=== PATIENT | female | born 1980 | race Two or more races ===

== ENCOUNTER 2016-08-21 08:30 | Inpatient (IN) | payer MEDICAID ==
[~2016-08-21] VITALS: Ht 157.5 cm; Wt 75.7 kg
[2016-08-21] MEDS ORDERED: LACTATED RINGER'S 1,000 ML IV SCH (09:13)
[2016-08-21] MEDS ORDERED: LACT. RINGERS/OXYTOCIN 20UNITS 1,000 ML IV SCH (09:13)
[2016-08-21] MEDS ORDERED: LIDOCAINE 2%HCL (LOCAL ANESTH.) INJ 20ML MDV IJ ONE (09:15)
[2016-08-21] MEDS ORDERED: ACCU-CHEK COMFORT CURVE STRIP VI SCH (09:15)
[2016-08-21] MEDS ORDERED: PROMETHAZINE HCL 25 MG/ML 1ML IV PRN (09:15)
[2016-08-21] MEDS ORDERED: DERMOPLAST 60ML BOTTLE TOP PRN (09:15)
[2016-08-21] MEDS ORDERED: PHISODERM TOP SOLN 240ML BTL TOP PRN (09:15)
[2016-08-21] MEDS ORDERED: WITCH HAZEL-GLYCERIN PAD TOP PRN (09:15)
[2016-08-21] MEDS ORDERED: PENICILLIN G POT 5MIL/D5 50ML 50 ML IV ONE (09:30)
[2016-08-21 10:11] LABS: Basophils # (auto) 0 uL; Basophils % (auto) 0.3 % (0.0-2.0); Eosinophils # (auto) 0 uL; Eosinophils % (auto) 0.4 % (0.0-7.0); Hematocrit 39.4 % (36.0-46.0); Hemoglobin 13.3 g/dL (12.2-16.2); Lymphocytes # (auto) 1.6 uL; Lymphocytes % (auto) 23.9 % (10.0-50.0); Mean Corpuscular Hemoglobin 30.5 pg (28.0-32.0); Mean Corpuscular Hgb Conc. 33.7 g/dL (32.0-36.0); Mean Corpuscular Volume 90.4 fL (80.0-100.0); Mean Platelet Volume 10.1 fL (7.4-10.4); Monocytes # (auto) 0.5 uL; Monocytes % (auto) 7.9 % (0.0-12.0); Neutrophils # (auto) 4.4 uL; Neutrophils % (auto) 67.5 % (37.0-80.0); Platelet Count (auto) 147 10^3/uL (140-450); Red Cell Distribution Width 13.3 % (11.6-16.0); SUSPECT VIEW TRANSMISSION; White Blood Cell 6.6 10^3/uL (4.4-10.8)
[2016-08-21 10:12] LABS: Urine Bilirubin Negative (Negative); Urine Blood Negative /uL (Negative); Urine Color Yellow (Yellow); Urine Glucose Normal (Normal); Urine Ketone Negative (Negative); Urine Nitrite Negative (Negative); Urine RBC <1 /hpf (0 - 4); Urine Squamous Epithelial Cell FEW /hpf (<5); Urine Urobilinogen Normal (Negative)
[2016-08-21 10:17] LABS: INR 0.97 (0.9-1.15); Partial Thromboplastin Time 26.8 sec (22.64-33.71)
[2016-08-21 10:25] LABS: Albumin 2.5 g/dL (3.4-5.0); BUN/Creatinine Ratio 14.6; Bilirubin, Total 0.3 mg/dL (0.2-1.0); Calcium 9.1 mg/dL (8.5-10.1); Total Protein 6.3 g/dL (6.4-8.2)
[2016-08-21] MEDS ORDERED: NALOXONE HCL 0.4 MG/ML VIAL IV ONE ×2 (12:45→13:15)
[2016-08-21] MEDS ORDERED: fentaNYL W ROPIVACAINE 150 ML EPI SCH ×2 (12:45→13:15)
[2016-08-21] MEDS ORDERED: fentaNYL CITRATE 100 MCG/2 ML VL IV ONE ×2 (12:45→13:15)
[2016-08-21] MEDS ORDERED: ePHEDrine SULFATE 50 MG/ML AMP IV ONE ×2 (12:45→13:15)
[2016-08-21] MEDS ORDERED: LIDOCAINE HCL 2 %PF INJ 10ML AMP IJ ONE (12:45)
[2016-08-21] MEDS ORDERED: SODIUM CHLORIDE 0.9% 500 ML IV PRN (13:12)
[2016-08-21] MEDS ORDERED: PENICILLIN G POTASSIUM 2,500,000 UNITS in D5W 5% 50 ML IV SCH (13:30)
[2016-08-21] MEDS ORDERED: ACETAMINOPHEN 325 MG TAB PO PRN (17:30)
[2016-08-21] MEDS ORDERED: IBUPROFEN 600 MG TAB PO PRN (17:30)
[2016-08-22] VITALS (7 sets, daily range): BP systolic 101–123; BP diastolic 54–85
[2016-08-22] MEDS: IBUPROFEN 800 MG TAB PO PRN ×3 (03:27→20:22)
[2016-08-22] MEDS ORDERED: ACETAMINOPHEN/CODEINE#3 (300/30mg) TAB PO PRN (07:45)
[2016-08-22] MEDS ORDERED: PRENCAP61 PO (07:56)
[2016-08-22] MEDS: ACETAMINOPHEN/CODEINE#3 (300/30mg) TAB PO PRN ×2 (08:07→17:34)
[2016-08-22] MEDS ORDERED: DOCUSATE CALCIUM 240 MG CAP PO SCH (10:00)
[2016-08-23 03:30] VITALS: BP 110/59
[2016-08-23 07:02] VITALS: BP 98/57
== END 2016-08-23 09:05 | disposition home or self-care (01) | DRG 560 ==
LOC: LDRP 08:30 → OBSVTOIN 09:30 → LDRP 10:00
PROVIDERS: ADMIT Specialist; ATTEND Specialist
PROC: 10E0XZZ Delivery of Products of Conception, External Approach (ICD-10-PCS; principal; 2016-08-21)
PROC: 3E0R3CZ (ICD-10-PCS; 2016-08-21)
PROC: 3E0R33Z Introduction of Anti-inflammatory into Spinal Canal, Percutaneous Approach (ICD-10-PCS; 2016-08-21)
DX: O99.824 Streptococcus B carrier state complicating childbirth (principal); O24.429 Gestational diabetes mellitus in childbirth, unspecified control; Z37.0 Single live birth; Z3A.38 38 weeks gestation of pregnancy; O77.0 Labor and delivery complicated by meconium in amniotic fluid
CPT/HCPCS: 36415; 59025; 59409; 62282; 80053; 81001; 81002; 82962; 85025; 85610; 85730; 86850; 86900; 86901; 94762; 96365; 96366; G0378; G0434; J2540; J2590; J3010; J7060